=== PATIENT | male | born 1955 | race African-American/Black ===

== ENCOUNTER 2023-02-13 14:27 | Inpatient (IN) ==
[2023-02-13] MEDS ORDERED: TENECTEPLASE 50 MG VIAL KIT 5 MG/ML (reconstituted) IV ONE ×2 (14:34)
[2023-02-13] MEDS ORDERED: Iodixanol (CONTRAST) 320 MG/ML 100 ML SDV IV ONE (14:47)
[2023-02-13] MEDS ORDERED: Ondansetron 4 mg VIAL 2 MG/ML 2 ml VIAL IV ONE ×2 (15:25→15:27)
[2023-02-13] MEDS ORDERED: Ondansetron 4 mg VIAL 2 MG/ML 2 ml VIAL ONE (15:25)
[2023-02-13 15:35] LABS: ABS Lymphocytes 1.3 10^3/uL (1.0-4.8); ABS Monocytes 0.4 10^3/uL (0.0-1.1); ABS Neutrophils 5.5 10^3/uL (1.5-7.6); Eosinophil % 0.2 %; Hematocrit 34.6 % (38-53); Hemoglobin 11.7 g/dL (13.2-16.3); Lymphocyte % 17.5 %; Mean Corpuscular Hemoglobin 33.5 pg (27-33); Mean Corpuscular Volume 98.7 fL (80-97); Mean Platelet Volume 6.9 fL (7.5-11.2); Platelet Count 314 10^3/uL (150-450); Red Cell Distribution Width 13.8 % (12-17); White Blood Count 7.2 10^3/uL (3.6-10.2)
[2023-02-13 15:47] LABS: Albumin 3.8 g/dL (3.2-5.2); CO2 Carbon Dioxide 25 mmol/L (22-32); Calcium 9.4 mg/dL (8.6-10.3); Chloride 102 mmol/L (101-111); Sodium 139 mmol/L (135-145)
[2023-02-13 15:53] LABS: ALT 25 U/L (7-52); Albumin/Globulin Ratio 1.1 (1-3); Alkaline Phosphatase 68 U/L (35-149); Blood Urea Nitrogen 9 mg/dL (6-24); Cholesterol 170 mg/dL; Creatinine, Serum 0.77 mg/dL (0.67-1.17); Globulin 3.6 g/dL (2-4); Glucose 137 mg/dL (70-100); HDL Cholesterol 37.2 mg/dL; LDL Cholesterol 111 mg/dL; Total Protein 7.4 g/dL (6.4-8.9); Triglycerides 109 mg/dL; eGFR CKD-EPI 99.4 (>60)
[2023-02-13 15:55] LABS: Anion Gap 12 mmol/L (2-16)
[2023-02-13 16:01] LABS: Activated Partial Thrombo Time 28.5 seconds (26.0-38.0); INR 1.17 (0.88-1.18)
[2023-02-13] MEDS ORDERED: Labetalol IV 5 MG/ML 20 ml VIAL IV PUSH PRN (17:00)
[2023-02-13] MEDS: Pantoprazole VIAL 40 MG VIAL IV SCH (17:39)
[2023-02-13 17:46] LABS: Potassium Redraw 3.6 mmol/L (3.5-5.0)
[2023-02-13] MEDS: NS 0.9% 1000 ml BAG 1,000 ML IV SCH (19:00)
[2023-02-13] MEDS ORDERED: Thiamine 100 MG/ML 2 ml VIAL 250 MG in NS 0.9% 100 ml BAG 100 ML IV SCH (20:00)
[2023-02-13 22:32] LABS: Urine Appearance Clear; Urine Bacteria Absent (Absent); Urine Bilirubin Negative (Negative); Urine Blood Negative (Negative); Urine Color Yellow; Urine Glucose Negative (Negative); Urine Ketones Negative (Negative); Urine Nitrite Negative (Negative); Urine Protein Negative (Negative); Urine Red Blood Cell 3+(>10/hpf) (Absent); Urine Squamous Epithelial Cell Present (Absent); Urine Urobilinogen Negative (Negative); Urine White Blood Cell Absent (Absent)
[2023-02-13 22:44] LABS: Urine Specific Gravity > 1.060 (1.002-1.030)
[2023-02-14 04:41] LABS: ABS Lymphocytes 1.9 10^3/uL (1.0-4.8); ABS Monocytes 0.5 10^3/uL (0.0-1.1); ABS Neutrophils 3.2 10^3/uL (1.5-7.6); ABS Nucleated RBC 0.01 10^3/ul; Eosinophil % 0.4 %; Hematocrit 36.1 % (38-53); Hemoglobin 12.3 g/dL (13.2-16.3); Lymphocyte % 32.6 %; Mean Corpuscular Hemoglobin 33.3 pg (27-33); Mean Corpuscular Hgb Conc 33.9 g/dL (31-36); Mean Corpuscular Volume 98.1 fL (80-97); Mean Platelet Volume 6.8 fL (7.5-11.2); Nucleated Red Blood Cells % 0.2 /100 WBC (0.0-0.4); Platelet Count 314 10^3/uL (150-450); Red Blood Count 3.68 10^6/uL (4.06-5.63); Red Cell Distribution Width 13.8 % (12-17); White Blood Count 5.7 10^3/uL (3.6-10.2)
[2023-02-14 05:04] LABS: Albumin 3.3 g/dL (3.2-5.2); Albumin/Globulin Ratio 1.1 (1-3); Calcium 8.9 mg/dL (8.6-10.3); Creatinine, Serum 0.75 mg/dL (0.67-1.17); HDL Cholesterol 33.6 mg/dL; Magnesium 1.8 mg/dL (1.9-2.7); Phosphorus 3.8 mg/dL (2.5-5.0); Potassium 3.6 mmol/L (3.5-5.0); Total Bilirubin 0.5 mg/dL (0.2-1.0); Total Protein 6.3 g/dL (6.4-8.9); eGFR CKD-EPI 100.1 (>60)
[2023-02-14] MEDS: NS 0.9% 1000 ml BAG 1,000 ML IV SCH ×2 (05:05→15:49)
[2023-02-14] MEDS ORDERED: Potassium Chlor 20 meq TAB.ER PO ONE (05:33)
[2023-02-14] MEDS ORDERED: Magnesium Sulfate 2 gm BAG 2 GM/50 ML BAG IVPB ONE (05:33)
[2023-02-14] MEDS: KCL 20 MEQ/100 ML IVPREMIX 20 MEQ/100 ML BAG IV SCH ×2 (06:08→08:22)
[2023-02-14] MEDS: Pantoprazole VIAL 40 MG VIAL IV SCH (08:16)
[2023-02-14] MEDS: Lidocaine PATCH 5% PATCH TRANSDERM SCH (12:02)
[2023-02-14] MEDS ORDERED: Thiamine IV 100 MG/ML VIAL (only for Bannana Bags !) IVPB SCH (14:00)
[2023-02-14] MEDS: Thiamine IV 500 MG in NS 0.9% 250 ML (Wernicke-Korsakoff) IV SCH ×2 (15:48→22:30)
[2023-02-14] MEDS: Enoxaparin 40 MG/0.4 ML SYR SUBCUT SCH (15:53)
[2023-02-15] MEDS: Pantoprazole VIAL 40 MG VIAL IV SCH (10:34)
[2023-02-15] MEDS: Lidocaine PATCH 5% PATCH TRANSDERM SCH (10:34)
[2023-02-15] MEDS: Thiamine IV 500 MG in NS 0.9% 250 ML (Wernicke-Korsakoff) IV SCH ×3 (10:45→23:34)
[2023-02-15] MEDS: Enoxaparin 40 MG/0.4 ML SYR SUBCUT SCH (17:27)
[2023-02-16 06:33] LABS: ABS Eosinophils 0.1 10^3/uL (0.0-0.5); ABS Lymphocytes 1.5 10^3/uL (1.0-4.8); ABS Monocytes 0.4 10^3/uL (0.0-1.1); ABS Neutrophils 3.4 10^3/uL (1.5-7.6); Eosinophil % 1.9 %; Hemoglobin 12.7 g/dL (13.2-16.3); Lymphocyte % 27.6 %; Mean Corpuscular Hemoglobin 33.8 pg (27-33); Mean Corpuscular Hgb Conc 34.4 g/dL (31-36); Mean Corpuscular Volume 98.2 fL (80-97); Mean Platelet Volume 7.5 fL (7.5-11.2); Nucleated Red Blood Cells % 0.1 /100 WBC (0.0-0.4); Platelet Count 285 10^3/uL (150-450); Red Blood Count 3.77 10^6/uL (4.06-5.63); Red Cell Distribution Width 13.8 % (12-17); White Blood Count 5.5 10^3/uL (3.6-10.2)
[2023-02-16 06:55] LABS: Calcium 8.9 mg/dL (8.6-10.3); Creatinine, Serum 0.67 mg/dL (0.67-1.17); Magnesium 1.9 mg/dL (1.9-2.7); Potassium 3.4 mmol/L (3.5-5.0); eGFR CKD-EPI 103.6 (>60)
[2023-02-16] MEDS: Pantoprazole VIAL 40 MG VIAL IV SCH (08:53)
[2023-02-16] MEDS: Thiamine IV 500 MG in NS 0.9% 250 ML (Wernicke-Korsakoff) IV SCH ×3 (08:53→20:30)
[2023-02-16] MEDS: Lidocaine PATCH 5% PATCH TRANSDERM SCH (08:58)
[2023-02-16] MEDS ORDERED: Potassium Chloride LIQUID 20 MEQ/15 ML LIQUID NG TUBE ONE (16:12)
[2023-02-16] MEDS: Enoxaparin 40 MG/0.4 ML SYR SUBCUT SCH (17:42)
[2023-02-17] MEDS: Thiamine IV 500 MG in NS 0.9% 250 ML (Wernicke-Korsakoff) IV SCH ×2 (09:25→16:36)
[2023-02-17] MEDS: Pantoprazole VIAL 40 MG VIAL IV SCH (09:25)
[2023-02-17] MEDS: Lidocaine PATCH 5% PATCH TRANSDERM SCH (09:32)
[2023-02-17] MEDS ORDERED: Midazolam 5 mg/5 ml VIAL 1 mg/ml 5 ml VIAL (5 mg) ONE (10:53)
[2023-02-17] MEDS ORDERED: Naloxone 0.4 mg VIAL 0.4 mg/ml 1 ml VIAL ONE (10:53)
[2023-02-17] MEDS ORDERED: fentaNYL 100 mcg/2 ml 50 MCG/ML VIAL ONE (10:53)
[2023-02-17] MEDS ORDERED: Flumazenil 0.5 mg/5 ml 0.1 MG/ML 5 ml VIAL ONE (10:54)
[2023-02-17] MEDS ORDERED: Benzocaine/Butamben/Tetracain (CETACAINE - SINGLE USE) 5 gm TOPICAL ONE (10:54)
[2023-02-17] MEDS ORDERED: fentaNYL 100 mcg/2 ml 50 MCG/ML VIAL IV SLOW PU ONE (12:07)
[2023-02-17] MEDS ORDERED: Midazolam 10 mg/10 ml VIAL 1 mg/ml 10 ml VIAL (10 mg) IV SLOW PU ONE (12:07)
[2023-02-17] MEDS ORDERED: Naloxone 0.4 mg VIAL 0.4 mg/ml 1 ml VIAL IV PUSH PRN (12:07)
[2023-02-17] MEDS: Enoxaparin 40 MG/0.4 ML SYR SUBCUT SCH (18:08)
[2023-02-17] MEDS ORDERED: Acetaminophen IV 1 GM/100ML 1,000 MG/100 ML BAG IV PRN (19:02)
[2023-02-18 07:13] LABS: ABS Eosinophils 0.1 10^3/uL (0.0-0.5); ABS Lymphocytes 1.5 10^3/uL (1.0-4.8); ABS Monocytes 0.4 10^3/uL (0.0-1.1); ABS Neutrophils 6.1 10^3/uL (1.5-7.6); ABS Nucleated RBC 0.01 10^3/ul; Hematocrit 35.2 % (38-53); Lymphocyte % 18.8 %; Mean Corpuscular Hemoglobin 33.6 pg (27-33); Mean Corpuscular Volume 98.8 fL (80-97); Mean Platelet Volume 7.9 fL (7.5-11.2); Nucleated Red Blood Cells % 0.1 /100 WBC (0.0-0.4); Platelet Count 250 10^3/uL (150-450); Red Blood Count 3.56 10^6/uL (4.06-5.63); Red Cell Distribution Width 13.8 % (12-17); White Blood Count 8.2 10^3/uL (3.6-10.2)
[2023-02-18 07:29] LABS: Creatinine, Serum 0.74 mg/dL (0.67-1.17); Potassium 3.4 mmol/L (3.5-5.0); eGFR CKD-EPI 100.6 (>60)
[2023-02-18] MEDS ORDERED: Potassium Chloride LIQUID 20 MEQ/15 ML LIQUID PO ONE (07:30)
[2023-02-18 07:58] LABS: Magnesium 1.9 mg/dL (1.9-2.7)
[2023-02-18] MEDS: Pantoprazole VIAL 40 MG VIAL IV SCH (09:14)
[2023-02-18] MEDS: Lidocaine PATCH 5% PATCH TRANSDERM SCH (09:17)
[2023-02-18] MEDS ORDERED: Lidocaine PATCH 5% PATCH TRANSDERM PRN (09:37)
[2023-02-18] MEDS ORDERED: Phenol 1.4% Throat Spray BTL TOPICAL PRN (09:53)
[2023-02-18] MEDS: Enoxaparin 40 MG/0.4 ML SYR SUBCUT SCH (17:24)
[2023-02-19 08:06] VITALS: BP 124/73
== END 2023-02-19 07:44 | DRG 66 ==
LOC: ED 14:27 → EDHOLD 16:14 → SUATTDRO 16:14 → ICU 16:41 → MEDTELE 02-14 17:10
PROVIDERS: ADMIT Internal Medicine; ATTEND Internal Medicine

== ENCOUNTER 2023-02-18 14:44 | Inpatient (IN) ==
[2023-02-19] MEDS: Enoxaparin 40 MG/0.4 ML SYR SUBCUT SCH (17:06)
[2023-02-20] MEDS: Enoxaparin 40 MG/0.4 ML SYR SUBCUT SCH (16:59)
[2023-02-21 07:32] LABS: ABS Eosinophils 0.1 10^3/uL (0.0-0.5); ABS Lymphocytes 1.4 10^3/uL (1.0-4.8); ABS Monocytes 0.5 10^3/uL (0.0-1.1); ABS Neutrophils 1.8 10^3/uL (1.5-7.6); ABS Nucleated RBC 0.01 10^3/ul; Eosinophil % 3.3 %; Hematocrit 36.7 % (38-53); Hemoglobin 12.6 g/dL (13.2-16.3); Lymphocyte % 36.4 %; Mean Corpuscular Hemoglobin 33.7 pg (27-33); Mean Corpuscular Hgb Conc 34.3 g/dL (31-36); Mean Corpuscular Volume 98.3 fL (80-97); Mean Platelet Volume 7.7 fL (7.5-11.2); Nucleated Red Blood Cells % 0.1 /100 WBC (0.0-0.4); Platelet Count 279 10^3/uL (150-450); Red Blood Count 3.74 10^6/uL (4.06-5.63); Red Cell Distribution Width 13.9 % (12-17); White Blood Count 3.9 10^3/uL (3.6-10.2)
[2023-02-21 07:39] LABS: Albumin 3.5 g/dL (3.2-5.2); Calcium 9.3 mg/dL (8.6-10.3); Creatinine, Serum 0.67 mg/dL (0.67-1.17); Globulin 3.6 g/dL (2-4); Potassium 3.9 mmol/L (3.5-5.0); Total Bilirubin 0.5 mg/dL (0.2-1.0); Total Protein 7.1 g/dL (6.4-8.9); eGFR CKD-EPI 103.6 (>60)
[2023-02-21] MEDS: Enoxaparin 40 MG/0.4 ML SYR SUBCUT SCH (16:42)
[2023-02-22] MEDS: Docusate LIQ 100 MG/10 ML UDC G TUBE SCH ×2 (12:09→20:00)
[2023-02-22] MEDS: Enoxaparin 40 MG/0.4 ML SYR SUBCUT SCH (16:31)
[2023-02-23] MEDS: Docusate LIQ 100 MG/10 ML UDC G TUBE SCH ×2 (09:13→21:53)
[2023-02-23] MEDS: Enoxaparin 40 MG/0.4 ML SYR SUBCUT SCH (17:48)
[2023-02-24] MEDS: Docusate LIQ 100 MG/10 ML UDC G TUBE SCH ×2 (09:25→21:58)
[2023-02-24] MEDS: Enoxaparin 40 MG/0.4 ML SYR SUBCUT SCH (17:21)
[2023-02-25] MEDS: Docusate LIQ 100 MG/10 ML UDC G TUBE SCH ×2 (09:58→21:01)
[2023-02-25] MEDS: Enoxaparin 40 MG/0.4 ML SYR SUBCUT SCH (16:45)
[2023-02-26] MEDS: Docusate LIQ 100 MG/10 ML UDC G TUBE SCH ×2 (09:32→20:54)
[2023-02-26] MEDS: Enoxaparin 40 MG/0.4 ML SYR SUBCUT SCH (16:52)
[2023-02-27] MEDS: Docusate LIQ 100 MG/10 ML UDC G TUBE SCH ×2 (08:35→20:42)
[2023-02-27] MEDS: Enoxaparin 40 MG/0.4 ML SYR SUBCUT SCH (16:39)
[2023-02-28 08:48] LABS: Calcium 9.8 mg/dL (8.6-10.3); Creatinine, Serum 0.76 mg/dL (0.67-1.17); Potassium 4.2 mmol/L (3.5-5.0); Total Bilirubin 0.7 mg/dL (0.2-1.0); eGFR CKD-EPI 99.7 (>60)
[2023-02-28 08:52] LABS: Hematocrit 36.7 % (38-53); Hemoglobin 12.6 g/dL (13.2-16.3); Mean Corpuscular Hemoglobin 33.2 pg (27-33); Mean Corpuscular Hgb Conc 34.2 g/dL (31-36); Mean Platelet Volume 7.9 fL (7.5-11.2); Platelet Count 344 10^3/uL (150-450); Red Blood Count 3.79 10^6/uL (4.06-5.63); Red Cell Distribution Width 13.5 % (12-17); White Blood Count 6.5 10^3/uL (3.6-10.2)
[2023-02-28 09:59] LABS: ABS Basophils 0.1 10^3/uL (0.0-0.1); ABS Eosinophils 0.2 10^3/uL (0.0-0.5); ABS Lymphocytes 1.6 10^3/uL (1.0-4.8); ABS Monocytes 0.6 10^3/uL (0.0-1.1); ABS Neutrophils 4.1 10^3/uL (1.5-7.6); Eosinophil % 2.6 %; Large Platelets Present; Lymphocyte % 24.5 %; Nucleated Red Blood Cells % 0.1 /100 WBC (0.0-0.4)
[2023-02-28] MEDS: Docusate LIQ 100 MG/10 ML UDC G TUBE SCH ×2 (10:41→20:40)
[2023-02-28] MEDS: Enoxaparin 40 MG/0.4 ML SYR SUBCUT SCH (16:44)
[2023-03-01] MEDS: Docusate LIQ 100 MG/10 ML UDC G TUBE SCH ×2 (09:55→20:28)
[2023-03-01] MEDS: Enoxaparin 40 MG/0.4 ML SYR SUBCUT SCH (16:47)
[2023-03-02] MEDS: Docusate LIQ 100 MG/10 ML UDC G TUBE SCH ×2 (09:38→20:51)
[2023-03-02] MEDS: Enoxaparin 40 MG/0.4 ML SYR SUBCUT SCH (16:57)
[2023-03-03] MEDS: Docusate LIQ 100 MG/10 ML UDC G TUBE SCH ×2 (12:27→21:38)
[2023-03-03] MEDS: Enoxaparin 40 MG/0.4 ML SYR SUBCUT SCH (17:39)
[2023-03-04] MEDS: Docusate LIQ 100 MG/10 ML UDC G TUBE SCH ×2 (13:12→19:46)
[2023-03-04] MEDS: Enoxaparin 40 MG/0.4 ML SYR SUBCUT SCH (17:58)
[2023-03-05 04:00] VITALS: BP 151/82
[2023-03-05] MEDS: Docusate LIQ 100 MG/10 ML UDC G TUBE SCH (08:39)
== END 2023-03-05 16:15 | disposition home or self-care (01) | DRG 66 ==
LOC: PMRU 02-19 09:27
PROVIDERS: ADMIT Physical Medicine & Rehabilitation; ATTEND Physical Medicine & Rehabilitation